=== PATIENT | male | born 1935 | race Caucasian/White ===

== ENCOUNTER → 2017-07-28 | Outpatient (CLI) | payer OTHER, BC | LOC: BHCLAF 15:30 | PROVIDERS: ATTEND Internal Medicine Cardiovascular Disease | DX: R06.02 Shortness of breath (principal); I10 Essential (primary) hypertension; R01.1 Cardiac murmur, unspecified | CPT/HCPCS: 93306-PO ==

== ENCOUNTER → 2018-02-26 | Outpatient (CLI) | payer OTHER, BC | LOC: CIMAGING 07:57 | PROVIDERS: ATTEND Internal Medicine | DX: F03.90 Unspecified dementia, unspecified severity, without behavioral disturbance, psychotic disturbance, mood disturbance, and anxiety (principal); G93.89 Other specified disorders of brain | CPT/HCPCS: 70450-PO ==

== ENCOUNTER → 2018-06-08 | Outpatient (CLI) | payer OTHER, BC | LOC: CIMAGING 12:33 | PROVIDERS: ATTEND Podiatrist | DX: L97.511 Non-pressure chronic ulcer of other part of right foot limited to breakdown of skin (principal); G57.91 Unspecified mononeuropathy of right lower limb; I70.203 Unspecified atherosclerosis of native arteries of extremities, bilateral legs | CPT/HCPCS: 73630-PO ==

== ENCOUNTER → 2018-07-06 | Outpatient (CLI) | payer OTHER, BC | LOC: EMCIMAGING 09:43 | PROVIDERS: ATTEND Podiatrist | DX: L97.511 Non-pressure chronic ulcer of other part of right foot limited to breakdown of skin (principal); M86.171 Other acute osteomyelitis, right ankle and foot; L03.031 Cellulitis of right toe; M77.51 Other enthesopathy of right foot and ankle | CPT/HCPCS: 73720-PN ==